=== PATIENT | female | born 1940 | race Caucasian/White ===

== ENCOUNTER 2017-02-08 01:35 | Observation (INO) | payer MEDICARE, MEDICAID ==
[~2017-02-08] VITALS: Ht 154.9 cm; Wt 113.0 kg
[~2017-02-08 01:35] MED LIST: AMLODIPINE5 MG PO; CELEBREX200 MG PO; CORDARONE/200 MG/TAB PO; ENALAPRIL10 MG PO; ENALAPRIL20 MG PO; HYDROCHLORO25 MG/TAB PO; LASIX 20 MG20 MG/TAB PO; LEVOTHYROXIN125 MCG PO; LEVOTHYROXIN25 MC1 PO; LOPRESSOR 550 MG/TAB PO; LOVENOX 10100 MG/1 M SC; MEDDOSEPAK PO; METOPROL TAR25 MG PO; METOPROLOL SUCC50 MG PO; NEXIUM40 M1 PO; NORCO1 TA1 PO; OMEPRAZOLE20 M2 PO; VITAMIN D33000 UNIT PO; WARFARIN SODIUM5 MG PO
[2017-02-08] MEDS ORDERED: ENALAPRIL10 MG PO (01:58)
[2017-02-08] MEDS ORDERED: KLOR-CON M2020 MEQ PO (01:59)
[2017-02-08 02:11] LABS: HEMATOCRIT 38.6 % (37.0-47.0); HEMOGLOBIN 12.2 g/dl (12.0-16.0); IMMATURE GRANULOCYTES 0.3 % (0.0-1.0); MEAN CELL VOLUME 91.7 fL CALC (80.0-100.0); MEAN CORPUSCULAR HGB CONC 31.6 g/L CALC (32.0-36.0); NEUT# 8.07 thou/uL (2.00-7.15); RED BLOOD COUNT 4.21 mill/uL (4.20-5.60); RED CELL DISTRI WIDTH 15.6 % (11.5-15.5)
[2017-02-08 02:25] LABS: ALBUMIN 4.3 g/dL (3.2-5.0); ALKALINE PHOSPHATASE 83 u/l (38-126); AMYLASE 66 u/l (30-110); ANION GAP 15 (6-22 (CALC)); BILIRUBIN, TOTAL 0.4 mg/dL (0.0-1.4); BUN 27 mg/dL (8-23); BUN/CREATININE RATIO 23 (12-20 (CALC)); CALCIUM 9.1 mg/dL (8.4-10.2); CARBON DIOXIDE 28 mmol/l (22-30); CHLORIDE 107 mmol/l (95-108); CREATININE 1.1 mg/dL (0.5-1.0); GFR 48 ML/MIN (>=60 (CALC)); GFR FOR AFR.AMER. 58 ML/MIN (>=60 (CALC)); GLUCOSE 101 mg/dL (82-115); LIPASE 68 u/l (23-300); POTASSIUM 4.4 mmol/l (3.5-5.1); SGOT/AST 31 u/l (9-36); SGPT/ALT 38 u/l (11-66); SODIUM 145 mmol/l (137-146); TOTAL PROTEIN 7.6 g/dL (6.3-8.2)
[2017-02-08 02:37] LABS: MYOGLOBIN 48 ng/mL (0 - 62)
[2017-02-08 02:39] LABS: PROTHROMBIN TIME 35.4 SECONDS (9.0-12.5)
[2017-02-08 02:49] LABS: URINE BILIRUBIN - DIPSTICK NEGATIVE (NEGATIVE); URINE BLOOD DIPSTICK NEGATIVE (NEGATIVE); URINE CLARITY CLEAR; URINE COLOR YELLOW; URINE GLUCOSE - DIPSTICK NEGATIVE (NEGATIVE); URINE KETONE NEGATIVE (NEGATIVE); URINE LEUK ESTERASE NEGATIVE (NEGATIVE); URINE NITRITE - DIPSTICK NEGATIVE (Negative); URINE PROTEIN - DIPSTICK NEGATIVE (NEG-TRACE); URINE SPECIFIC GRAVITY 1.015; URINE UROBILINOGEN - DIPSTICK 0.2 E.U./dL (0.2)
[2017-02-08 04:00] VITALS: BP 175/81
[2017-02-08 06:04] LABS: MAGNESIUM 1.8 mg/dL (1.6-2.3)
[2017-02-08 06:35] LABS: TSH, 3RD GENERATION 3.12 uIU/mL (0.47 - 4.68)
[2017-02-08 07:59] VITALS: BP 140/60
[2017-02-08 09:16] LABS: CHOLESTEROL HDL RATIO 3.5 (<4.4 (CALC))
[2017-02-08 11:18] VITALS: BP 148/51
[2017-02-08] MEDS ORDERED: LOPRESSOR25 M1 PO (15:44)
[2017-02-08] MEDS ORDERED: AMIODARONE200 MG PO (15:44)
[2017-02-08 15:55] VITALS: BP 155/56
[2017-02-08] MEDS ORDERED: WARFARIN SODIUM5 MG PO (16:02)
[2017-02-08 19:28] VITALS: BP 164/72
[2017-02-09] VITALS: BP 155/90
[2017-02-09 04:00] VITALS: BP 150/70
[2017-02-09 08:18] VITALS: BP 172/76
[2017-02-09 10:30] LABS: INTERNATIONAL NORMALIZED RATIO 3.6 RATIO (0.7-1.3); PROTHROMBIN TIME 41.9 SECONDS (9.0-12.5)
[2017-02-09 10:32] LABS: ANION GAP 13 (6-22 (CALC)); BUN 16 mg/dL (8-23); BUN/CREATININE RATIO 17 (12-20 (CALC)); CALCIUM 8.7 mg/dL (8.4-10.2); CARBON DIOXIDE 30 mmol/l (22-30); CHLORIDE 104 mmol/l (95-108); GFR 53 ML/MIN (>=60 (CALC)); GFR FOR AFR.AMER. > 60 ML/MIN (>=60 (CALC)); GLUCOSE 101 mg/dL (82-115); POTASSIUM 4.1 mmol/l (3.5-5.1); SODIUM 142 mmol/l (137-146)
[2017-02-09 11:09] VITALS: BP 122/80
[2017-02-09] MEDS ORDERED: NORCO1 TA1 PO (12:29)
== END 2017-02-09 15:18 ==
LOC: ED 01:35 → ED-I 02:00 → ED 03:37 → MS2 03:38
PROVIDERS: Emergency Medicine; Nurse Practitioner Family; ADMIT Internal Medicine; ATTEND Internal Medicine
DX: I48.0 Paroxysmal atrial fibrillation (principal); I20.9 Angina pectoris, unspecified; I13.0 Hypertensive heart and chronic kidney disease with heart failure and stage 1 through stage 4 chronic kidney disease, or unspecified chronic kidney disease; I50.32 Chronic diastolic (congestive) heart failure; N18.3 Chronic kidney disease, stage 3 (moderate); E03.9 Hypothyroidism, unspecified; I47.1 Supraventricular tachycardia; M19.90 Unspecified osteoarthritis, unspecified site; K21.9 Gastro-esophageal reflux disease without esophagitis; I73.9 Peripheral vascular disease, unspecified; E78.5 Hyperlipidemia, unspecified; E66.9 Obesity, unspecified; Z79.01 Long term (current) use of anticoagulants; R00.1 Bradycardia, unspecified; T44.7X5A Adverse effect of beta-adrenoreceptor antagonists, initial encounter; Z99.81 Dependence on supplemental oxygen; Z68.42 Body mass index [BMI] 45.0-49.9, adult

== ENCOUNTER 2019-04-22 06:10 | Emergency (ER) | payer MEDICARE, MEDICAID ==
[~2019-04-22] VITALS: Ht 154.9 cm; Wt 105.5 kg
[~2019-04-22 06:10] MED LIST changes: +AMIODARONE200 MG PO; +KLOR-CON M2020 MEQ PO; +LOPRESSOR25 M1 PO
[2019-04-22] MEDS ORDERED: WARFARIN3 MG PO (06:38)
[2019-04-22] MEDS ORDERED: FUROSEMIDE20 MG PO (06:39)
[2019-04-22] MEDS ORDERED: HYDROCO/APAP1 TA9 PO (06:40)
[2019-04-22] MEDS ORDERED: AMOXICILLIN500 MG PO (10:38)
[2019-04-22 10:39] VITALS: BP 112/87
== END 2019-04-22 10:53 | disposition home or self-care (01) ==
LOC: ED 06:10
PROC: 0HQLXZZ Repair Left Lower Leg Skin, External Approach (ICD-10-PCS; principal; 2019-04-22)
DX: S81.812A Laceration without foreign body, left lower leg, initial encounter (principal); I10 Essential (primary) hypertension; I48.91 Unspecified atrial fibrillation; W06.XXXA Fall from bed, initial encounter; Y92.003 Bedroom of unspecified non-institutional (private) residence as the place of occurrence of the external cause

== ENCOUNTER 2020-02-04 07:51 | Emergency (ER) | payer MEDICARE, MEDICAID ==
[~2020-02-04] VITALS: Ht 154.9 cm; Wt 100.0 kg
[~2020-02-04 07:51] MED LIST changes: +AMOXICILLIN500 MG PO; +FUROSEMIDE20 MG PO; +HYDROCO/APAP1 TA9 PO; +WARFARIN3 MG PO
[2020-02-04 08:35] LABS: HEMOGLOBIN 9.7 g/dl (12.0-16.0); IMMATURE GRANULOCYTES 0.4 % (0.0-5.0); MEAN CELL VOLUME 91.2 fL CALC (80.0-100.0); MEAN CORPUSCULAR HGB 27.6 pG CALC (26.0-32.0); MEAN CORPUSCULAR HGB CONC 30.3 g/dL CAL (32.0-36.0); NEUT# 4.77 thou/uL (2.00-7.15); RED BLOOD COUNT 3.51 mill/uL (4.20-5.60); RED CELL DISTRI WIDTH 16.2 % (11.5-15.5)
[2020-02-04 08:46] LABS: ALBUMIN 3.8 g/dL (3.2-5.0); ALKALINE PHOSPHATASE 65 u/l (38-126); BILIRUBIN, TOTAL 0.4 mg/dL (0.0-1.4); BUN 15 mg/dL (8-23); BUN/CREATININE RATIO 16 (12-20 (CALC)); CARBON DIOXIDE 26 mmol/l (22-30); CHLORIDE 99 mmol/l (95-108); CREATININE 0.9 mg/dL (0.5-1.0); GFR 60 ML/MIN (>=60 (CALC)); GFR FOR AFR.AMER. > 60 ML/MIN (>=60 (CALC)); POTASSIUM 4.2 mmol/l (3.5-5.1); SGOT/AST 46 u/l (9-36); TOTAL PROTEIN 7.4 g/dL (6.3-8.2)
[2020-02-04 08:50] LABS: D-DIMER 0.4 mg/L (0.19-0.60)
[2020-02-04 08:58] LABS: ANION GAP 10 (6-22 (CALC)); SODIUM 131 mmol/l (137-146)
[2020-02-04 09:06] LABS: ACT PARTIAL THROMBO TIME 65.5 SECONDS (20.0-32.5)
[2020-02-04 09:14] LABS: INTERNATIONAL NORMALIZED RATIO 3.6 RATIO (0.7-1.3)
[2020-02-04 09:43] LABS: URINE BILIRUBIN - DIPSTICK NEGATIVE (NEGATIVE); URINE BLOOD DIPSTICK LARGE (NEGATIVE); URINE COLOR YELLOW; URINE GLUCOSE - DIPSTICK NEGATIVE (NEGATIVE); URINE KETONE NEGATIVE (NEGATIVE); URINE LEUK ESTERASE TRACE (NEGATIVE); URINE PROTEIN - DIPSTICK 100 mg/dL (NEG-TRACE); URINE SPECIFIC GRAVITY >=1.030; URINE UROBILINOGEN - DIPSTICK 0.2 E.U./dL (0.2)
[2020-02-04 09:48] LABS: URINE NITRITE - DIPSTICK POSITIVE (Negative)
[2020-02-04 09:51] LABS: URINE BACTERIA MODERATE hpf; URINE SQUAMOUS EPITHELIAL CELL FEW EPI/hpf (0-FEW)
[2020-02-04] MEDS ORDERED: VENTOLIN H108 MCG/AC IN ×3 (10:53→11:29)
[2020-02-04] MEDS ORDERED: KEFLEX500 M1 PO ×3 (10:53→11:29)
[2020-02-04] MEDS ORDERED: DECADRON4 MG PO ×3 (10:53→11:29)
[2020-02-04] MEDS ORDERED: TUSSIN COU15 MG/5 ML PO ×5 (10:53→11:29)
[2020-02-04 11:32] VITALS: BP 175/67
== END 2020-02-04 11:35 | disposition home or self-care (01) ==
LOC: ED 07:51
PROVIDERS: Student in an Organized Health Care Education/Training Program
DX: U07.1 COVID-19 (principal); J12.89 Other viral pneumonia; N39.0 Urinary tract infection, site not specified; I10 Essential (primary) hypertension; I48.91 Unspecified atrial fibrillation; E66.01 Morbid (severe) obesity due to excess calories
CPT/HCPCS: J3475

== ENCOUNTER 2020-02-13 10:14 | Inpatient (IN) | payer MEDICARE, MEDICAID ==
[2020-02-13] VITALS (8 sets, daily range): BP systolic 116–161; BP diastolic 56–76
[~2020-02-13] VITALS: Ht 154.9 cm; Wt 105.0 kg
[~2020-02-13 10:14] MED LIST changes: +DECADRON4 MG PO; +KEFLEX500 M1 PO; +TUSSIN COU15 MG/5 ML PO; +VENTOLIN H108 MCG/AC IN
--- NOTE | 2020-02-13 10:15 | NUR ---
ARRIVES VIA STRETCHER WITH EMS ON O2@6LPM VIA NC. PT STATES WORSENING SOB.
--- NOTE | 2020-02-13 10:30 | NUR ---
PT WITH HOB ELEVATED, PT ALERT AND ORIENTED X 3, AIRWAY PATENT, RESP TACHYPNEIC AND SHALLOW, MONITOR SHOWS SR, 02 97% ON 6L VIA NC. NON PRODUCTIVE COUGH NOTED AT THIS TIME.
[2020-02-13] MEDS ORDERED: ENALAPRIL10 MG PO (11:09)
[2020-02-13] MEDS ORDERED: METOPROL TAR25 MG PO (11:11)
--- NOTE | 2020-02-13 11:30 | NUR ---
PT REPOSITIONED FOR COMFORT, PT C/O " BURNING TO BOTTOM" . STATES " BEEN SITTING ON MY BOTTON TOO LONG" MONITOR CONTINUES TO SHOW SR, VITAL SIGNS STABLE AT THIS TIME.
[2020-02-13 11:56] LABS: HEMATOCRIT 27.5 % (37.0-47.0); HEMOGLOBIN 8.5 g/dl (12.0-16.0); IMMATURE GRANULOCYTES 1.4 % (0.0-5.0); MEAN CORPUSCULAR HGB 27.5 pG CALC (26.0-32.0); MEAN CORPUSCULAR HGB CONC 30.9 g/dL CAL (32.0-36.0); NEUT# 13.32 thou/uL (2.00-7.15); RED BLOOD COUNT 3.09 mill/uL (4.20-5.60); RED CELL DISTRI WIDTH 16.4 % (11.5-15.5)
[2020-02-13 12:15] LABS: INTERNATIONAL NORMALIZED RATIO 3.9 RATIO (0.7-1.3); PROTHROMBIN TIME 36.2 SECONDS (9.0-12.5)
[2020-02-13 12:17] LABS: ALBUMIN 3.1 g/dL (3.2-5.0); ALKALINE PHOSPHATASE 82 u/l (38-126); ANION GAP 9 (6-22 (CALC)); BUN 40 mg/dL (8-23); BUN/CREATININE RATIO 37 (12-20 (CALC)); CARBON DIOXIDE 25 mmol/l (22-30); CHLORIDE 105 mmol/l (95-108); CREATININE 1.1 mg/dL (0.5-1.0); GFR 48 ML/MIN (>=60 (CALC)); GFR FOR AFR.AMER. 58 ML/MIN (>=60 (CALC)); LIPASE 29 u/l (23-300); POTASSIUM 4.4 mmol/l (3.5-5.1); SGOT/AST 40 u/l (9-36); SODIUM 135 mmol/l (137-146); TOTAL PROTEIN 6.2 g/dL (6.3-8.2)
[2020-02-13 12:18] LABS: BILIRUBIN, TOTAL 0.6 mg/dL (0.0-1.4)
[2020-02-13 12:29] LABS: C-REACTIVE PROTEIN > 27.0 mg/dL (0-0.9)
--- NOTE | 2020-02-13 12:30 | NUR ---
MONITOR SHOWS SR, RESP REMAIN SHALLOW WITH NON PRODUCTIVE COUGH NOTED. 02 95-98% ON 6L NC, PT ASKING TO BE REPOSITIONED FOR COMFORT. PT REPOSITIONED AT THIS TIME, BLANKETS PLACED BELOW BILATERAL KNEES FOR COMFORT. PT STATES " THAT FEELS MUCH BETTER"
--- NOTE | 2020-02-13 13:50 | NUR ---
PT WITH HOB ELEVATED, ASKED PT IF SHE NEEDED TO URINATE OF IF SHE URINATED IN HER BRIEF. PT STATES " NO" PT ASKED ABOUT NORMAL BATHROOM NEEDS AT HOME, SHE STATES " BEEN USING A LITTLE THING AT HOME BECAUSE I CAN'T MAKE IT TO THE BATHROOM LATELY BECAUSE I'M SO WEAK"
--- NOTE | 2020-02-13 13:55 | NUR ---
REPORT TO TOY OATES IN ICU.
--- NOTE | 2020-02-13 14:00 | NUR ---
PT ARRIVED TO THE FLOOR VIA STRETCHER, ACCOMPANIED BY ER STAFF. PT TRANSFERED FROM STRETCHER TO BED X3 ASSIST. ASSESSMENT COMPLETED AND VS OBTAINED. PT IS ALERT AND ORIENTED. PT SOB ON O2 @ 4L NC, LUNGS SOUND DIMINISHED. PEDAL PULSES STRONG. 2+ EDEMA NOTED TO LOWER EXTREMITIES BILATERALLY. PT DENIES ANY PAIN OR DISCOMFORT AT THIS TIME. PT CLEANED UP, SOILED BRIEF CHANGED, BARRIOR CREAM APPLIED TO BOTTOM. PICTURES OBTAINED FOR CHART. RED/YEAST AREA NOTED ABOVE THE GROIN. MD TO BE NOTIFIED. PT REPOSITIONED IN BED, BREATHING EASIER. PT ORIENTED TO ROOM AND CALL AARON SYSTEM. PROVIDED PT WITH ICE WATER. SAFETY PRECAUTIONS IN PLACE. WILL CONTINUE TO MONITOR.
--- NOTE | 2020-02-13 14:00 | NUR ---
PT TAKEN TO ICU VIA STRETCHER AT THIS TIME. PT VERBALIZES APPRECIATION OF CARE.
--- NOTE | 2020-02-13 19:00 | NUR ---
daughter on phone. cordless phone taken to pt.
--- NOTE | 2020-02-13 19:20 | NUR ---
awake. denies acute distress. o2 cont per nc. breath sounds coarse/diminished bilat. cardiac rehabilitation specialist shows sinus rhythm hr 82. #20 rac & lac saline locks. incont xlarge amt urine. pure wick repositioned. requires MUCH encouragement to assist with care. fall & air/contact precautions cont.
--- NOTE | 2020-02-13 22:00 | NUR ---
incont xlarge amt urine. purewick removed. #16 waite inserted with immediate return of approx 400cc urine. linen changed. sao2 83%. nc adjusted to 10 l/m. sao2 90%. rt notified. o2 changed to 12 l/m high flow. sao2 95-98%.
[2020-02-14] VITALS (11 sets, daily range): BP systolic 122–146; BP diastolic 54–82
--- NOTE | 2020-02-14 00:01 | NUR ---
eyes closed. nad. o2 cont per high flow nc. threat monitoring analyst shows sinus rhythm hr 62.
--- NOTE | 2020-02-14 02:00 | NUR ---
resting quietly. resps even & unlabored. nad. classroom monitor shows sinus rhythm hr 60.
--- NOTE | 2020-02-14 05:28 | NUR ---
lab here. blood drawn.
[2020-02-14 05:57] LABS: HEMATOCRIT 27.1 % (37.0-47.0); HEMOGLOBIN 8.3 g/dl (12.0-16.0); MEAN CELL VOLUME 88.3 fL CALC (80.0-100.0); MEAN CORPUSCULAR HGB CONC 30.6 g/dL CAL (32.0-36.0); NEUT# 12.74 thou/uL (2.00-7.15); RED BLOOD COUNT 3.07 mill/uL (4.20-5.60); RED CELL DISTRI WIDTH 16.3 % (11.5-15.5)
[2020-02-14 06:31] LABS: ALBUMIN 2.6 g/dL (3.2-5.0); ALKALINE PHOSPHATASE 65 u/l (38-126); ANION GAP 9 (6-22 (CALC)); BILIRUBIN, TOTAL 0.5 mg/dL (0.0-1.4); BUN 37 mg/dL (8-23); BUN/CREATININE RATIO 41 (12-20 (CALC)); CARBON DIOXIDE 26 mmol/l (22-30); CHLORIDE 105 mmol/l (95-108); CREATININE 0.9 mg/dL (0.5-1.0); GFR 60 ML/MIN (>=60 (CALC)); GFR FOR AFR.AMER. > 60 ML/MIN (>=60 (CALC)); POTASSIUM 4.7 mmol/l (3.5-5.1); SGOT/AST 36 u/l (9-36); SODIUM 136 mmol/l (137-146); TOTAL PROTEIN 5.5 g/dL (6.3-8.2)
[2020-02-14 06:35] LABS: MAGNESIUM 2.4 mg/dL (1.6-2.3)
[2020-02-14 06:38] LABS: INTERNATIONAL NORMALIZED RATIO 3.2 RATIO (0.7-1.3); PROTHROMBIN TIME 30.1 SECONDS (9.0-12.5)
[2020-02-14 06:57] LABS: C-REACTIVE PROTEIN 41.8 mg/dL (0-0.9)
--- NOTE | 2020-02-14 08:00 | NUR ---
ASSESSMENT IS COMPLETED: IV SITES ARE FREE FROM REDNESS OR CARL. HR IS REG,PULSES ARE STRONG X4, ABD IS SOFT WITH ACTIVE BS, BREATH SOUNDS ARE DIMINISHED LAKHANI DRAINING YELLOW URINE. CONTNUE TO OSBERVE AND MONITOR.
--- NOTE | 2020-02-14 08:09 | NUR ---
speaking with daughter re:how her mom is doing
[2020-02-14 11:53] LABS: URINE BILIRUBIN - DIPSTICK NEGATIVE (NEGATIVE); URINE BLOOD DIPSTICK MODERATE (NEGATIVE); URINE COLOR YELLOW; URINE GLUCOSE - DIPSTICK NEGATIVE (NEGATIVE); URINE KETONE NEGATIVE (NEGATIVE); URINE LEUK ESTERASE NEGATIVE (NEGATIVE); URINE NITRITE - DIPSTICK NEGATIVE (Negative); URINE PROTEIN - DIPSTICK TRACE mg/dL (NEG-TRACE); URINE SPECIFIC GRAVITY >=1.030; URINE UROBILINOGEN - DIPSTICK 0.2 E.U./dL (0.2)
[2020-02-14 12:01] LABS: URINE WBC 0-2 WBC/hpf (0-5)
--- NOTE | 2020-02-14 12:03 | NUR ---
INFORMED FAMILY RE: HOW MANY TO CALL AND CHECK ON THE PT. EXPLAINED THAT PT IS DOING BETTER. ALSO ON THE MEDICATION THAT IS RECOMMENDED BY THE CDC
--- NOTE | 2020-02-14 12:15 | NUR ---
PT IS RELAXING IN BED WITH NO DISTRESS NOTED. IV SITE IS FREE FROM REDNESS OR EDEMA. CONTINUE TO OBSERVE AND MONITOR.
--- NOTE | 2020-02-14 13:51 | NUR ---
IV RESTARTED IN LEFT UPPER ARM BY SHRUTHI OATES. DISCONTINUED THE RAC DUE TO SWELLING FROM ZITHROMAX, PHARMACY MADE AWARE
--- NOTE | 2020-02-14 14:15 | NUR ---
PT HAS BEEN RELAXING IN BED WITH NO DISTRESS NOTED.
--- NOTE | 2020-02-14 17:28 | NUR ---
FRANCI PT'S GRANDDAUGHTER CALLED AND INQUIRED ABOUT THE PT. INFORMED THAT PT IS RESTING COMFORTABLY NOW.
--- NOTE | 2020-02-14 18:36 | NUR ---
INFORMED PT OF HER GRANDDAUGHTER CALLING.
--- NOTE | 2020-02-14 21:00 | NUR ---
PATIENT'S KILLIANVIVIOLIVAS ON THE PHONE FOR UPDATES AND WOULD LIKE TO SPEAK TO PATIENT, PT ABLE TO SPEAK TO HER, PT DOES DESAT INTO HIGH 80'S WHEN SPEAKING OR WITH ACTIVITY. O2 WEANED TO 12 L/MIN NC H. HIGH FLOW. PT ALERT AND ORIENTED X4. POC DISCUSSED, PATIENT UNDERSTANDS AND AGREES. IVX2 INTACT, SALINE LOCKED. SCD'S PLACED. LAKHANI INTACT. ABDOMINAL FOLDS WASHED AND PATTED DRY TO APPLY NYSTATIN POWDER. NURSING ASSESSMENT PERFORMED. PT REFUSES TO PLACE ON HER SIDE, SHE REQUESTS TO KEEP HOB UP AND FEETE ELEVATED. NO COMPLAINTS OF PAIN. PT ABLE TO SWALLOW HER BEDTIME MEDS. CALL LIGHT WITHIN REACH.
[2020-02-15] VITALS (12 sets, daily range): BP systolic 127–159; BP diastolic 57–67
--- NOTE | 2020-02-15 00:01 | NUR ---
PT REQUESTS ICE CREAM, PROVIDED. PT WITH HOB NEAR 45 DEGREES. O2 WEANED TO 11 L/MIN H. HIGH FLOW NC. O2 NOW 91% WHILE EATING. WILL CONTINUE TO MONITOR. CALL LIGHT WITHIN REACH.
--- NOTE | 2020-02-15 02:02 | NUR ---
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 PROVIDED. O2 WEANED TO 9 L/MIN HIGH FLOW H. NC. O2 SAT NOW IS 93%. PT BECOMES SOB WHEN SHE SPEAKS FOR LONG PERIODS. NO OTHER NEEDS AT THIS TIME. CALL LIGHT WITHIN REACH.
--- NOTE | 2020-02-15 04:11 | NUR ---
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 PT WAS ALSO PULLED UP X2 MAX ASSIST. PT DID DESAT INTO 70'S. HIGH FLOW NC TITRATED TO 15 L/MIN H. PT SITTING IN HIGH KISER'S, PURSED LIP BREATHING TECHNIQUE ENCORAGED, PT O2 SAT SLOWLY INCREASING INTO 80'S. PT ALSO EXERTS HERSELF BY SPEAKING, PT ASKED TO RELAX AND FOCUS ON BREATHING. NO OTHER COMPLAINTS OR NEEDS AT THIS TIME. CALL LIGHT WITHIN REACH.
--- NOTE | 2020-02-15 04:20 | NUR ---
PT'S O2 SAT IS 91 % ON HIGH FLOW NC AT 15 L/MIN. MIKEL CONTINUE TO MONITOR
--- NOTE | 2020-02-15 05:35 | NUR ---
PATIENT ABLE TO SWALLOW HER AM MEDS. PT SITS UP IN HIGH KISER'S, SATS 92% ON 15 L/MIN NC H. HIGH FLOW. NO ACUTE DISTRESS SHOWN. NO COMPLAINTS OR NEEDS AT THIS TIME. CALL LIGHT WITHIN REACH.
[2020-02-15 06:35] LABS: INTERNATIONAL NORMALIZED RATIO 2.6 RATIO (0.7-1.3); PROTHROMBIN TIME 25.1 SECONDS (9.0-12.5)
[2020-02-15 06:48] LABS: ALBUMIN 2.6 g/dL (3.2-5.0); ALKALINE PHOSPHATASE 87 u/l (38-126); ANION GAP 10 (6-22 (CALC)); BILIRUBIN, TOTAL 0.3 mg/dL (0.0-1.4); BUN 37 mg/dL (8-23); BUN/CREATININE RATIO 44 (12-20 (CALC)); CARBON DIOXIDE 25 mmol/l (22-30); CHLORIDE 106 mmol/l (95-108); CREATININE 0.9 mg/dL (0.5-1.0); GFR 60 ML/MIN (>=60 (CALC)); GFR FOR AFR.AMER. > 60 ML/MIN (>=60 (CALC)); POTASSIUM 4.2 mmol/l (3.5-5.1); SGOT/AST 37 u/l (9-36); SODIUM 137 mmol/l (137-146); TOTAL PROTEIN 5.3 g/dL (6.3-8.2)
--- NOTE | 2020-02-15 08:15 | NUR ---
PATIENT ALERT, SITTING IN BED, NO SIGNS OF DISTRESS NOTED, ROUTINE ASSESSMENT COMPLETED AT THIS TIME.
--- NOTE | 2020-02-15 10:15 | NUR ---
PATIENT RESTING IN BED, NO SIGNS OF ACUTE DISTRESS, COMPLAINS OF DYSPNEA, INHALER USED AT THIS TIME, RT AT BEDSIDE WITH NO FURTHER INTERVENTIONS, NO OTHER COMPLAINTS AT THIS TIME.
--- NOTE | 2020-02-15 12:15 | NUR ---
PATIENT COMPLAINING OF MILD PAIN TO BACK AND LEGS, PAIN MEDS GIVEN AT THIS TIME, NO OTHER COMPLAINTS OR DISTRESS NOTED AT THIS TIME.
--- NOTE | 2020-02-15 14:00 | NUR ---
PT RESTING SEMI FOWLERS WATCHING TV; ALERT AND ORIENTED. REMAINS ON 15L HIGH FLOW NC; RESPIRATIONS EVEN AND UNLABORED; SPO2 95%. NO REQUESTS OR CONCERNS AT THIS TIME. CALL LIGHT WITHIN REACH.
--- NOTE | 2020-02-15 16:20 | NUR ---
TYLENOL GIVEN FOR MILD HEADACHE AND BLINDS CLOSED.
--- NOTE | 2020-02-15 18:00 | NUR ---
LAKHANI DRAINING CLEAR YELLOW URINE IN ADEQUATE AMOUNTS. HEADACHE RELIEVED BY TYELNOL; DENIES ANY PAIN AT THIS TIME.
--- NOTE | 2020-02-15 19:00 | NUR ---
REPORT RECEIVED FROM Werner CERDA RN, CARE OF PT ASSUMED AT THIS TIME.
--- NOTE | 2020-02-15 20:52 | NUR ---
CALLS FOR UPDATES ON PTS STATUS, UPDATES PROVIDED, NO CHANGES TO PLAN OF CARE AT THIS TIME.
--- NOTE | 2020-02-15 21:00 | NUR ---
PT C/O HEADACHE, REQUEST PRN LORTAB, ALBUTEROL INHALER, AND SONATA FOR SLEEP. SCHEDULED MEDICATIONS AND REQUESTED PRNS ADMINISTERED, SEE E-MAR. PT SET UP TO BRUSH HER TEETH PER HER REQUEST. DENIES FURTHER NEEDS AT THIS TIME. CALL AARON WITHIN REACH, AGREES TO CALL PRN.
--- NOTE | 2020-02-15 21:10 | NUR ---
RECEIVED MESSAGE THAT PTS YECENIA KOROMA CALLED FOR UPDATE ON PTS STATUS. RETURNED CALL AND PROVIDED UPDATES ON PT AND ANSWERED KIRSTIN QUESTION. OFFERED TO TAKE PHONE TO PT SO YECENIA COULD SPEAK WITH HER ON NEXT PT ROUND, YECENIA AGREES.
--- NOTE | 2020-02-15 21:36 | NUR ---
PT APPEARS TO BE SLEEPING COMFORTABLY, RESPIRATIONS ARE REGULAR AND UNLABORED. PLAN HAD BEEN TO GIVE PT PHONE SO HER GRANDAUGHTER COULD SPEAK WITH HER. INFORMED GRANDDAUGHTER PT APPEARED TO BE COMFORTABLY SLEEPING. GRANDAUGHTER STATES "THATS OK, LET HER SLEEP". CALL AARON REMAINS WITHIN REACH.
[2020-02-16] VITALS (12 sets, daily range): BP systolic 135–163; BP diastolic 64–74
--- NOTE | 2020-02-16 00:28 | NUR ---
PT APPEARS TO BE SLEEPING COMFORTABLY, RESPIRATIONS REGULAR AND UNLABORED, NO APPARENT DISTRESS, CALL AARON REMAINS WITHIN REACH.
--- NOTE | 2020-02-16 01:17 | NUR ---
PT AWAKE, C/O THROBBING HEADACHE, 11/11. PRN APAP ADMINISTERED, SEE E-MAR. DENIES FURTHER NEEDS. CALL AARON WITHIN REACH, AGREES TO CALL PRN.
--- NOTE | 2020-02-16 01:55 | NUR ---
PT CON'T TO C/O THROBBING HEADACHE, HOT TEA PROVIDED PER PTS REQUEST, NOTED O2 HUMIDITY RESOVOIR EMPTY. CALLED RT TO REFILL. RT BRINGS STERILE WATER AND REQUEST NURSE REFILL. RESOVOIR REFILLED W/ STERILE WATER.
--- NOTE | 2020-02-16 02:44 | NUR ---
PT SPILLS TEA ON HERSELF, TEA IS COLD AT TIME OF INCIDENT, PARTIAL LINEN CHANGE COMPLETED. BEDSIDE DESK CLEANED AND DECLUTTERED.
--- NOTE | 2020-02-16 03:28 | NUR ---
PT CALLS AND REPORTS "I DON'T FEEL GOOD", ASKED PT TO EXPLAIN, PT STATES "IM JUST MISERABLE", ASKED PT TO EXPLAIN SYMPTOMOLOGY IN DETAIL, REPORTS HEADACHE AND ACHING EVERY WHERE. COOL WASH CLOTH APPLIED TO PTS FOREHEAD, PT ENCOURAGED TO KEEP LIGHT OFF AND KEEP ROOM DARK OFTEN POSSIBLE. REVIEWED AND ENCOURAGED DEEP BREATHING AND RELAXATION TECHNIQUES. PT AGREES TO ATTEMPT. REPORTS SHE WOULD LIKE HER LORTAB. PT INFORMED IT IS DUE AT 0500 AND SHE WILL RECEIVE IT PROMPTLY WHEN DUE.
--- NOTE | 2020-02-16 04:15 | NUR ---
REPORTED BY Nelida GIBBONSA, PT OFFERED BED BATH AND LINEN CHANGE AT THIS TIME, PT DECLINES.
--- NOTE | 2020-02-16 05:05 | NUR ---
LEADERSHIP DEVELOPMENT MANAGER IN ROOM TO DRAW AM LABS
--- NOTE | 2020-02-16 05:12 | NUR ---
PRN LORTAB ADMINISTERED FOR C/O HEADACHE AND GENERALIZED ACHES WITH AM SYNTHROID, SEE E-MAR. PT DENIES FURTHER NEEDS @ THIS TIME. CALL AARON WITHIN REACH, AGREES TO CALL PRN.
--- NOTE | 2020-02-16 05:15 | NUR ---
DERRICK WORKER WELL SERVICE IN ROOM TO DRAW AM LABS.
[2020-02-16 05:27] LABS: HEMATOCRIT 27.6 % (37.0-47.0); HEMOGLOBIN 8.6 g/dl (12.0-16.0); IMMATURE GRANULOCYTES 2.2 % (0.0-5.0); MEAN CELL VOLUME 86.5 fL CALC (80.0-100.0); MEAN CORPUSCULAR HGB CONC 31.2 g/dL CAL (32.0-36.0); NEUT# 14.84 thou/uL (2.00-7.15); RED BLOOD COUNT 3.19 mill/uL (4.20-5.60); RED CELL DISTRI WIDTH 15.6 % (11.5-15.5)
[2020-02-16 05:48] LABS: ALBUMIN 2.9 g/dL (3.2-5.0); ALKALINE PHOSPHATASE 99 u/l (38-126); ANION GAP 10 (6-22 (CALC)); BILIRUBIN, TOTAL 0.4 mg/dL (0.0-1.4); BUN 43 mg/dL (8-23); BUN/CREATININE RATIO 51 (12-20 (CALC)); CARBON DIOXIDE 28 mmol/l (22-30); CHLORIDE 102 mmol/l (95-108); CREATININE 0.8 mg/dL (0.5-1.0); GFR > 60 ML/MIN (>=60 (CALC)); GFR FOR AFR.AMER. > 60 ML/MIN (>=60 (CALC)); POTASSIUM 4.2 mmol/l (3.5-5.1); SGOT/AST 34 u/l (9-36); SODIUM 136 mmol/l (137-146); TOTAL PROTEIN 5.9 g/dL (6.3-8.2)
[2020-02-16 05:54] LABS: INTERNATIONAL NORMALIZED RATIO 2.7 RATIO (0.7-1.3); PROTHROMBIN TIME 26.1 SECONDS (9.0-12.5)
--- NOTE | 2020-02-16 07:15 | NUR ---
REPORT RECEIVED FROM ИВАН LOPEZ. PT RESTING IN BED SEMI FOWLERS WITH EYES CLOSED AND NO SIGNS OF DISTRESS. RESPIRATIONS EVEN AND UNLABORED ON 15L HIGH FLOW NC. LAKHANI DRAINING URINE TO GRAVITY. REMAINS ON AIRBORNE/CONTACT PRECAUTIONS FOR POSITIVE COVID SWAB ON 02/04/20 AND FLU B. SAFETY MEASURES IN PLACE. CALL LIGHT WITHIN REACH.
--- NOTE | 2020-02-16 07:53 | NUR ---
PT SITTING UP HIGH FOWLERS EATING BREAKFAST. DRY COUGH. SPO2 DECREASES TO 87% WHILE EATING AND COUGHING. C/O MILD GENERALIZED PAIN. DENIES NAUSEA. HAS SOME SOB WITH EXERTION. PLAN OF CARE REVIEWED. PT ENCOURAGED TO VERBALIZE CONCERNS. STATES UNDERSTANDING. SAFETY MEASURES IM PLACE. CALL LIGHT WITHIN REACH.
--- NOTE | 2020-02-16 10:39 | NUR ---
REMDESIVIR INFUSING; BRUISING AT IV SITE, BUT OTHER MCKEON IS HEALTHY AND FLUSHES. DAUGHTER UPDATED ON TELEPHONE ANDS SPOKE TO PATIENT.
--- NOTE | 2020-02-16 12:00 | NUR ---
LORTAB GIVEN FOR 4/10 GENERALIZED PAIN INCLUDING LOWER BACK AND LOWER EXTREMITIES. ZITHROMAX INFUSING. AFEBRILE.
--- NOTE | 2020-02-16 13:03 | NUR ---
PT REPOSITIONED ONTO RIGHT SIDE WITH HOB ELEVATED 30 DEGREES; ENCOURAGED MORE REPOSITIONING. BARRIER CREAM APPLIED TO COCCYX AND NYSTAIN POWDER TO REDENNED AREAS. SPO2 95% CURRENLTY ON 15L. PT REQUESTED LIGHTS BE TURNED OFF SO SHE CAN TAKE A NAP.
--- NOTE | 2020-02-16 13:51 | NUR ---
PT REQUESTED TO BE REPOSITIONED BACK ONTO BACK BECAUSE SHE CANNOT TURN HERSELF ALL THE WAY. PHOTO TAKEN OF COCCYX AND DUODERM PLACED ON REDNESS AND SMALL OPEN AREAS; PHOTO TAKEN AND PLACED IN CHART. BLEEDING EXTERNAL HEMMORHOID NOTED. PT SAT UP IN HIGH FOWLERS; PURSED LIP BREATHING WITH O2 SAT DOWN LOW 80% WITH EXERTION OF REPOSITIONING. IV SITE TO POSTERIOR LEFT UPPER ARM HAS REDNESS TO SURROUNDING SKIN; NEW IV SITE ATTEMPTED X 1 WITHOUT SUCCESS; PT WITH POOR IV ACCESS.
--- NOTE | 2020-02-16 14:48 | NUR ---
RESPIRATIONS NOW SHALLOW AND UNLABORED; SPO2 89-92% ON THE 15L; PT STATES SHE FEELS BETTER AFTER RESTING. COUMADIN ON HOLD FOR POTENTIAL CENTRAL LINE PLACEMENT; WRITTEN CONSENT RECEIVED FROM PT; TO RECEIVED FROM DR. HAYES. PT NOW POSITIONED WITH PILLOWS AND EDUCATED ON TURNING EVERY 2 HOURS WITH STAFF ASSISTANCE.
--- NOTE | 2020-02-16 15:35 | NUR ---
NEW ORDER RECEIVED FROM CENTRAL LINE DUE TO POOR VENOUS ACCESS. DR. WHITMAN AT BEDSIDE FOR CENTRAL LINE PLACEMENT. TRIPLE LUMEN PLACED TO RIGHT FEMORAL. PT TOLERATED WELL.
[2020-02-17] VITALS (11 sets, daily range): BP systolic 98–149; BP diastolic 53–82
[2020-02-17 06:12] LABS: INTERNATIONAL NORMALIZED RATIO 3.3 RATIO (0.7-1.3); PROTHROMBIN TIME 30.9 SECONDS (9.0-12.5)
--- NOTE | 2020-02-17 07:55 | NUR ---
PT SITTING ON SIDE OF BED, PT REQUESTS TO USE BSC, NOTED SPO2 66% INSTRUCTED PT TO REMAIN IN BED, RT CALLED TO BEDSIDE, PT PLACED ON NONREBREATHER AT 15L, PT REPOSITIONED IN BED, SPO2 SLOWLY INCREASING PT AT 87% AT THIS TIME, PT VERBAL, NO SIGNS OF DISTRESS NOTED, CALL LIGHT IN REACH,CONTINUE TO MONITOR.
--- NOTE | 2020-02-17 08:26 | NUR ---
incinerator attendant was called to pt room as per pt in respiratory distress. incinerator attendant arrived, and found law firm partner and rn with pt, sitting upright and legs on side of the bed. pt with c/o sob. pt spo2 measured via pulse ox in 50s. pt on hfnc at 15lpm at this time. incinerator attendant obtained nrb and placed on pt along with hfnc. pt resting comfortbaly currently,laying in bed. spo2 currently registering via pulse ox at 90. md aware.
--- NOTE | 2020-02-17 08:42 | NUR ---
MD AT BEDSIDE WITH PT TO DISCUSS POC
--- NOTE | 2020-02-17 09:12 | NUR ---
PT RESTING IN BED, REPOSITIONED IN BED AND PT MEDICATED PER MAR. PT TOLERATED WELL. CALL LIGHT IN REACH,CONTINUE TO MONITOR.
--- NOTE | 2020-02-17 11:00 | NUR ---
IV ANTIBIOTICS INFUSING TO CENTRAL LINE TO R FEMORAL, PT TOLERATING WELL, NO SIGNS OF DISTRESS NOTED, RESP EVEN AND UNLABORED. PT CONTINUES WITH NC AND NRB SATS 91%. CALL LIGHT IN REACH,CONTINUE TO MONITOR.
--- NOTE | 2020-02-17 14:00 | NUR ---
PT RESTING IN BED, NO SIGNS OF DISTRESS NOTED, RESP EVEN AND UNLABORED. IV ANTIVIRAL INFUSING, PT VOICES NO NEEDS OR COMPLAINTS AT THIS TIME, SIPS OF WATER GIVEN, CALL LIGHT IN REACH,CONTINUE TO MONITOR.
--- NOTE | 2020-02-17 17:27 | NUR ---
PT HAD A MODERATE AMT OF STOOL IN BED, NOTED BLOOD TO STOOL, PT STATES SHE HAS HEMORROIDS, NO SIGNS OF DISTRESS NOTED, RESP EVEN AND UNLABORED. CALL LIGHT IN REACH,CONTINUE TO MONITOR.
--- NOTE | 2020-02-17 19:15 | NUR ---
awake. sitting in high fowlers position. sob with any exertion. desats when to 85% when drinking water. o2 cont with both 15 liters per nc & 100% nrb mask. senior engineering technician shows sinus rhythm ivcd hr 74. rt fem tlc in place & saline locked. waite cath in place. urine clear yellow. duoderm in place to coccyx. fall & air/contact precautions cont.
--- NOTE | 2020-02-17 21:40 | NUR ---
c/o anxiety. sonata 5mg po given. pt said "nervous waiting for that tube." pt talking about intubation. pt reassured.
--- NOTE | 2020-02-17 23:50 | NUR ---
awake. fidgety. watching tv. no acute distress. o2 cont. senior service aide shows sinus rhythm ivcd hr 74.
[2020-02-18] VITALS (33 sets, daily range): BP systolic 86–148; BP diastolic 46–69
--- NOTE | 2020-02-18 01:50 | NUR ---
incont mod sized blood clot.
--- NOTE | 2020-02-18 02:00 | NUR ---
naps for short intervals then is awake. resps remain labored. o2 cont per mask & nc.
--- NOTE | 2020-02-18 04:00 | NUR ---
naps for short intervals then awakens. resps labored & shallow. remains in semi fowlers position. school lunch monitor shows sinus rhythm hr 72.
--- NOTE | 2020-02-18 05:30 | NUR ---
blood drawn & sent to lab.
[2020-02-18 06:02] LABS: HEMATOCRIT 26.8 % (37.0-47.0); HEMOGLOBIN 8.6 g/dl (12.0-16.0); IMMATURE GRANULOCYTES 1.6 % (0.0-5.0); MEAN CELL VOLUME 85.1 fL CALC (80.0-100.0); MEAN CORPUSCULAR HGB 27.3 pG CALC (26.0-32.0); MEAN CORPUSCULAR HGB CONC 32.1 g/dL CAL (32.0-36.0); NEUT# 23.78 thou/uL (2.00-7.15); RED BLOOD COUNT 3.15 mill/uL (4.20-5.60); RED CELL DISTRI WIDTH 15.5 % (11.5-15.5)
[2020-02-18 06:16] LABS: ANION GAP 9 (6-22 (CALC)); BUN 44 mg/dL (8-23); BUN/CREATININE RATIO 49 (12-20 (CALC)); CARBON DIOXIDE 29 mmol/l (22-30); CHLORIDE 104 mmol/l (95-108); CREATININE 0.9 mg/dL (0.5-1.0); GFR 60 ML/MIN (>=60 (CALC)); GFR FOR AFR.AMER. > 60 ML/MIN (>=60 (CALC)); SODIUM 138 mmol/l (137-146)
[2020-02-18 06:49] LABS: C-REACTIVE PROTEIN > 27.0 mg/dL (0-0.9)
--- NOTE | 2020-02-18 07:10 | NUR ---
PT RESTING IN BED, NO SIGNS OF DISTRESS NOTED, RESP EVEN AND UNLABORED. PT CONTINUES WITH NC AND MASK SPO2 90% PT REQUESTING SIP OF WATER, PT TOLERATED WELL. LICENSE ISSUER AT BEDSIDE ASSISTED IN REPOSITIONING, NEW DUODERM PLACED ON BUTTOCK, BARRIER CREAM APPLIED TO SURROUND AREA. DISCUSSED POC, PT VERBALIZED UNDERSTANDING. TRIPLE LUMEN CENTRAL LINE TO R FEMORAL, FLUSH WELL. PT DOES NOT WANT TO WEAR SCD'S. ASSESSMET COMPLETED, CALL LIGHT IN REACH,CONTINUE TO MONITOR.
--- NOTE | 2020-02-18 07:22 | NUR ---
PT RESTING IN BED, NO SIGNS OF DISTRESS NOTED, RESP EVEN AND UNLABORED. PT CONTINUES WITH NC AND NRB MASK. SATS REMAIN AT 90%, PT VOICES NO NEEDS OR COMPLAINTS AT THIS TIME, CALL LIGHT IN REACH,CONTINUE TO MONITOR.
--- NOTE | 2020-02-18 08:35 | NUR ---
AT BEDSIDE DISCUSSING POC WITH PT.
--- NOTE | 2020-02-18 08:55 | NUR ---
SPOKE WITH DAUGHTER BRIAN ON PHONE, DISCUSSED PLANS FOR INTUBATION, DAUGHTER AGREES. SPOKE WITH PT WHO IS RESTING IN BED, DISCUSSED PLANS FOR INTUBATION, PT AGREES. CONSENT OBTAINED FOR INTUBATION. ANETHESIA TRAVELING CLERK NOTIFIED.
--- NOTE | 2020-02-18 09:35 | NUR ---
0910- Keaton BARRAZA CRNA PRESENT AT BEDSIDE TO ASSESS PT AND DISCUSS PLAN OF CARE/ INTUBATION; PT HAD CONSENTED TO INTUBATION/CONSENT OBTAINED 912- PROPOFOL BOLUS PER Keaton BARRAZA CRNA 913- PT INTUBATED WITH 7.0F FR ETT; SECURED AT THE 21CM LIP LINE; ETT CHIN APPLIED PER RT; VENT SETTINGS OF AC MODE, RATE 22, TV 400, PEEP 10.0, 100% FiO2 0920- 18 FR NG TUBE PLACED TO LEFT NARE; PLACED TO LIS; LIGHT GREEN GASTRIC CONTENT NOTED; PLACEMENT VERIFIED VIA AIR INSERTION/ ASCULT 0930- PROPOFOL GTT INITATED AT 5MCG/KG/MIN; SURVEILLANCE SUPERVISOR REMAINS AT BEDSIDE; 0934- XRAY PRESENT AT BEDSIDE
--- NOTE | 2020-02-18 10:05 | NUR ---
pt noted beating hands on bed; journalists and other writers at bedside; intubation explained; restraints reinforced; propofol titrated for higher level of sedation; will continue to monitor
--- NOTE | 2020-02-18 10:58 | NUR ---
CALL MADE TO [facility], SPOKE WITH ELSIE. REQUIRED INFORMATION PROVIDED, AWAITING CALL BACK.
--- NOTE | 2020-02-18 11:00 | NUR ---
intubated and sedated; propofol gtt at 35 mcg/kg/min; sr/sb on monitor; iv intact and patent; no redness or edema noted at site; waite to gravity; maintained with prev charted settings; repositioned to right side; restraints reinfornced; will continue to monitor
--- NOTE | 2020-02-18 12:00 | NUR ---
intubated and sedated; no apparent distress noted; resp even and unlabored; vent intact and maintained with 100% FiO2; waite to gravity; repositioned to right side; diprivan gtt continues at 35 mcg/kg/min; waite to gravity; oral care and suctioning provided; will continue to monitor
--- NOTE | 2020-02-18 13:07 | NUR ---
received called from [facility] transfer center Danielle; bed assignment received 5A bed 5; report to be call to [phone]; Danielle to be called with ETA
--- NOTE | 2020-02-18 13:24 | NUR ---
[facility] called per insurance writer; information provided; ETA 3 hours
--- NOTE | 2020-02-18 13:32 | NUR ---
CALL MADE TO TRANSFER CENTER TO NOTIFY [facility] TRANSP[facility] ETA TO [facility]HRS.
--- NOTE | 2020-02-18 14:00 | NUR ---
intubated and sedated; no apparent distress noted; sr/sb on monitor; waite to gravity; iv intact and patent; propofol gtt at 35mcg/kg/min; repositioned; vent maintained; will continue to monitor
--- NOTE | 2020-02-18 16:10 | NUR ---
intubated and sedated; vent maintained; waite to gravity; sr on monitor; repositioned; will continue to monitor
--- NOTE | 2020-02-18 16:45 | NUR ---
new bottle of umesh bajwa for transport
--- NOTE | 2020-02-18 16:57 | NUR ---
pt discharged in stable condition with [facility] transport; pt belongings and medications released with transport team; vent intact and patent; diprivan gtt cont at 35mcg/kg/min; iv patent; waite intact;
--- NOTE | 2020-02-18 17:05 | NUR ---
REPORT CALLED TO VENTURA OATES AT [facility], OUT PATIENT THERAPIST ALSO CALLED FRANCI THE GRANDDAUGHTER TO NOTIFY OF PT TRANSFER.
== END 2020-02-18 16:57 | disposition short-term general hospital (02) | DRG 208 ==
LOC: ED 10:14 → ED-I 12:20 → ED 12:37 → ICU 12:38
PROVIDERS: Family Medicine; Internal Medicine; Nurse Practitioner; ADMIT Internal Medicine; ATTEND Internal Medicine
PROC: XW033E5 Introduction of Remdesivir Anti-infective into Peripheral Vein, Percutaneous Approach, New Technology Group 5 (ICD-10-PCS; 2020-02-14)
PROC: 06HY33Z Insertion of Infusion Device into Lower Vein, Percutaneous Approach (ICD-10-PCS; 2020-02-16)
PROC: 0BH17EZ Insertion of Endotracheal Airway into Trachea, Via Natural or Artificial Opening (ICD-10-PCS; principal; 2020-02-18)
PROC: 5A1935Z Respiratory Ventilation, Less than 24 Consecutive Hours (ICD-10-PCS; 2020-02-18)
DX: U07.1 COVID-19 (principal); J12.89 Other viral pneumonia; J96.01 Acute respiratory failure with hypoxia; Z68.43 Body mass index [BMI] 50.0-59.9, adult; I13.0 Hypertensive heart and chronic kidney disease with heart failure and stage 1 through stage 4 chronic kidney disease, or unspecified chronic kidney disease; K92.1 Melena; J44.0 Chronic obstructive pulmonary disease with (acute) lower respiratory infection; J10.1 Influenza due to other identified influenza virus with other respiratory manifestations; I50.9 Heart failure, unspecified; N18.3 Chronic kidney disease, stage 3 (moderate); I48.91 Unspecified atrial fibrillation; E03.9 Hypothyroidism, unspecified; I73.9 Peripheral vascular disease, unspecified; K21.9 Gastro-esophageal reflux disease without esophagitis; R79.1 Abnormal coagulation profile; T45.515A Adverse effect of anticoagulants, initial encounter; E66.01 Morbid (severe) obesity due to excess calories; Z79.01 Long term (current) use of anticoagulants